=== PATIENT | female | born 1970 | race Caucasian/White ===

== ENCOUNTER 2020-09-04 11:08 | Emergency (ER) | payer OTHER ==
[~2020-09-04] VITALS: Ht 162.6 cm; Wt 83.9 kg
[2020-09-04 12:41] LABS: Source, Urine Clean Catch
[2020-09-04 12:47] LABS: Appearance, Urine Clear (Clear); Bilirubin, Urine Neg (Neg); Blood, Urine 3+ (Neg); Color, Urine Yellow (P-Yellow); Glucose Qualitative, Urine Neg (Neg); Ketones, Urine Neg (Neg); Leukocyte Esterase, Urine 2+ (Neg); Nitrite, Urine Pos (Neg); Protein, Urine 2+ (Neg); Urobilinogen, Urine NORM (Normal)
[2020-09-04 13:09] LABS: White Blood Cells, Urine TNTC /hpf (0-5)
[2020-09-04 13:10] LABS: Bacteria Many /hpf; Mucus Mod (0-Heavy); Red Blood Cells, Urine 50-100 /hpf (0-2); Squamous Epithelial Cells Few /hpf (Few)
[2020-09-04] MEDS ORDERED: CEPH500 PO (13:16)
== END 2020-09-04 13:33 | disposition home or self-care (01) ==
LOC: ER 11:08
PROVIDERS: Physician Assistant
DX: N30.00 Acute cystitis without hematuria (principal)
CPT/HCPCS: 81001; 87077; 87086; 87186; 99284; A9270